=== PATIENT | male | born 1965 | race American Indian/Alaskan Native ===

== ENCOUNTER 2018-07-18 12:15 | Emergency (ER) | payer SELFPAY ==
[2018-07-18 12:36] VITALS: BP 156/106
--- NOTE | 2018-07-18 13:34 | Emergency Department Report ---
Minor Respiratory - HPI Chief Complaint: Sore Throat Stated Complaint: PHARYNGITIS Time Seen by Provider: 07/18/18 13:25 Duration: 3 Days Pain Location: Throat Severity: mild Minor Respiratory: Yes Rhinorrhea, Yes Sore Throat, Yes Able to Tolerate Fluids, Yes Cough, Yes Sick Contacts, Yes Fever, No Ear Pain, No Hemoptysis, No Chest Pain, No Shortness of Breath Other History: Chief complaint: "I think I have pharyngitis again.". HPI: This is a pleasant healthy 53-year-old male who presents with sore throat and nasal congestion fever cough. Symptoms have improved with exception of sore throat. He was diagnosed with pharyngitis 2 to 3 years ago. He is concerned that he may need antibiotics. 2 children at home have cold symptoms. Mildly severe symptoms. No shortness of breath. No difficulty with swallowing. ED Review of Systems ROS: Stated complaint: PHARYNGITIS Other details as noted in HPI Constitutional: fever, malaise ENT: throat pain. denies: ear pain Respiratory: cough Cardiovascular: denies: chest pain ED Past Medical Hx - Past Medical History Previous Medical History?: No - Surgical History Past Surgical History?: No - Social History Smoking Status: Never Smoker Substance Use Type: None - Medications Home Medications: Home Medications Medication Instructions Recorded Confirmed Last Taken Type Sulfamethoxazole/Trimethoprim 1 each PO BID #20 tablet 11/08/15 Unknown Rx [Bactrim DS TAB] Azithromycin [Zithromax Z-CHRISTELLE] 250 mg PO DAILY 5 Days #6 tablet 07/18/18 Unknown Rx Minor Respiratory Exam - Exam General: Vital signs noted. No distress. Alert and acting appropriately. HEENT: Yes Pharyngeal Erythema, Yes Pharyngeal Exudates, Yes Moist Mucous Membranes, Yes Rhinorrhea, No Conjuctival Injection Neck: Yes Supple Lungs: Yes Good Air Exchange, No Wheezes, No Ronchi, No Stridor, No Cough, No La bored Respirations, No Retractions, No Use of Accessory Muscles, No Other Abnormal Lung Sounds Heart: Yes Regular, No Murmur Abdomen: Yes Normal Bowel Sounds, No Tenderness, No Peritoneal Signs Skin: No Rash, No Edema Neurologic: Alert and oriented, no deficits. Musculoskeletal: Unremarkable. ED Course Vital Signs 07/18/18 12:34 Temperature 98.7 F Pulse Rate 92 H Respiratory 18 Rate Blood Pressure 156/106 O2 Sat by Pulse 99 Oximetry ED Medical Decision Making - Medical Decision Making Acute pharyngitis, symmetric tonsils on exam do not suspect peritonsillar abscess. Prescribed azithromycin. Patient has penicillin allergy. Given return precautions and supportive care instructions. Critical care attestation.: If time is entered above; I have spent that time in minutes in the direct care of this critically ill patient, excluding procedure time. ED Disposition Clinical Impression: Acute pharyngitis Disposition: TO HOME OR SELFCARE Is pt being admited?: No Does the pt Need Aspirin: No Condition: Stable Instructions: Pharyngitis (ED) Prescriptions: Azithromycin [Zithromax Z-CHRISTELLE] 250 mg PO DAILY 5 Days #6 tablet Referrals: KEVIN ARRIETA RN [Primary Care Provider] - 3-5 Days [facility] [Outside] - 3-5 Days Forms: Work/School Release Form(ED)
== END 2018-07-18 13:39 | disposition home or self-care (01) ==
LOC: ED 12:15
DX: J02.9 Acute pharyngitis, unspecified (principal); Z88.0 Allergy status to penicillin
CPT/HCPCS: 99282